=== PATIENT | male | born 1965 | race African-American/Black ===

== ENCOUNTER 2017-04-27 20:42 | Inpatient (IN) | payer OTHER ==
[~2017-04-27] VITALS: Ht 160 cm; Wt 63.5 kg
[2017-04-27] MEDS ORDERED: IV NORMAL SALINE 1000ML BAG 1,000 ML IV ONE (21:00)
[2017-04-27] MEDS ORDERED: ONDANSETRON PF 4 MG/2 ML VIAL. IV ONE ×2 (21:00→21:45)
[2017-04-27 21:29] LABS: BASO # 0.1 x10^3/uL (0.0-0.2); BASO % 1 % (0-3); EOS % 1 % (0-3); HEMATOCRIT 36.1 % (39.0-53.0); HEMOGLOBIN 12.4 g/dL (13.0-17.5); LYMPH # 2.2 x10^3/uL (1.0-4.8); LYMPH % 38 % (24-48); MEAN CORPUSCULAR HEMOGLOBIN 34 pg (25-35); MEAN CORPUSCULAR HGB CONC 34 g/dL (31-37); MEAN CORPUSCULAR VOLUME 98 fL (79-100); MONO % 11 % (0-9); NEUT % 49 % (31-73); PLATELET COUNT 149 x10^3/uL (140-400); RED CELL DISTRIBUTION WIDTH 16.2 % (11.5-14.5); WHITE BLOOD COUNT 5.7 x10^3/uL (4.0-11.0)
[2017-04-27 21:43] LABS: CREATININE 0.7 mg/dL (0.7-1.3); GFR 142.2; POTASSIUM 3.1 mmol/L (3.5-5.1)
[2017-04-27] MEDS ORDERED: HYDROmorphone 2 MG/ML VIAL IV ONE ×2 (21:45→23:00)
[2017-04-27 21:49] LABS: ALBUMIN 3.1 g/dL (3.4-5.0); ALBUMIN/GLOBULIN RATIO 0.9 (1.0-1.7); TOTAL BILIRUBIN 0.1 mg/dL (0.2-1.0); TOTAL PROTEIN 6.6 g/dL (6.4-8.2)
--- NOTE | 2017-04-27 22:24 | RAD ---
LIMITED ABDOMINAL ULTRASOUND History: Right upper quadrant and midline pain. Comparison: None. Procedure: Transabdominal ultrasound images are obtained. Findings: Pancreas demonstrates apparent mass measuring 4.6 cm in maximum dimension. Pancreatic duct is dilated at 9 mm. Liver is increased in echogenicity. No focal hepatic masses are identified. Right hepatic lobe measures 13.3 cm Gallbladder has an unremarkable appearance. Common bile duct measures normally at 4 mm in diameter. Right kidney measures 10.4 cm in length. There is no evidence of stone or hydronephrosis. Visualized IVC demonstrates normal caliber. Impression: 1. There appears be a pancreatic mass measuring about 4.6 cm in maximum dimension. Pancreatic duct appears dilated. 2. Common bile duct appears to have normal caliber at 4 mm. 3. Gallbladder appears within normal limits. Electronically signed by: Bladimir Saunders MD (04/27/2017 10:21 PM) [id number]
--- NOTE | 2017-04-27 22:58 | PHYS DOC ---
Past Medical History Past Medical History: Stroke Additional Past Medical Histor: PE Past Surgical History: No Surgical History Alcohol Use: Heavy Drug Use: None Adult General Chief Complaint Chief Complaint: ABDOMINAL PAIN HPI HPI Patient is a 52 year old gentleman with a history significant for strokes and PE in the past presents to the ER today secondary nausea vomiting for 3 days with abdominal pain. Patient reports yesterday he did have a black bowel movement but he thinks that was after taking Pepto-Bismol. Patient has any history of hypertension diabetes lung or liver problems. Patient has a kidney problems. No history of stomach ulcers. No prior abdominal surgeries. Patient reports he does smoke and drink. Patient denies any drugs. Patient has no known drug allergies. Patient has any fevers shakes chills cough cold rhinorrhea. Patient denies any dysuria frequency or urgency. Patient is complaining of midepigastric abdominal discomfort 1-2 days as well. Review of systems Constitutional: Denies fever or chills Eyes: Denies change in visual acuity, redness, or eye pain HENT: Denies nasal congestion or sore throat All other review systems are negative except as documented in the history of present illness portion. Physical exam Constitutional: Well developed, well nourished, no acute distress, non-toxic appearance. HENT: Normocephalic, atraumatic, bilateral external ears normal, oropharynx moist, no oral exudates, nose normal. Eyes: PERRLA, EOMI, conjunctiva normal, no discharge. Neck: Normal range of motion, no tenderness, supple, no stridor. Cardiovascular:Heart rate regular rhythm, Lungs & Thorax: Bilateral breath sounds clear to auscultation Abdomen: Bowel sounds normal, soft, tenderness to palpation midepigastric region. no masses, no pulsatile masses. Skin: Warm, dry, no erythema, no rash. Back: No tenderness, no CVA tenderness. Extremities: No tenderness, no cyanosis, no clubbing, ROM intact, no edema. Neurologic: Alert and oriented X 3, normal motor function, normal sensory function, no focal deficits noted. Psychologic: Affect normal, judgement normal, mood normal. This is a 52-year-old gentleman who presents here today complaining of midepigastric and right upper quadrant pain 1-2 days. Patient reports a gastric alcohol. Patient reports he drank about 3 shots of gin today. Patient denies any fevers shakes chills or any other symptomatology other than the abdominal discomfort. Patient had an ultrasound of his gallbladder which revealed dilated common ducts with a likely pancreatic mass. CT scan of the abdomen and pelvis was performed were still waiting results. Patient will need to be admitted to the hospital to assist with pain management. Patient required greater than 2 doses of Dilaudid while in the ED to assist him with his pain. Patient be given antiemetics and will be given hydration. Current Medications Current Medications Current Medications Medications (Trade) Dose Ordered Sig/Valentino Start Time Stop Time Status Last Admin Dose Admin Hydromorphone HCl (Dilaudid) 1 mg 1X ONCE 04/27/17 23:00 04/27/17 23:01 Info (Do NOT chart on this entry -- for MONITORING) 1 each PRN DAILY PRN 04/27/17 23:00 04/29/17 22:59 Iohexol (Omnipaque 300 Mg/ml) 75 ml 1X ONCE 04/27/17 23:00 04/27/17 23:01 Ondansetron HCl (Zofran) 4 mg 1X ONCE 04/27/17 21:45 04/27/17 21:46 DC 04/27/17 21:58 4 MG Sodium Chloride 1,000 ml @ 1,000 mls/hr 1X ONCE 04/27/17 21:00 04/27/17 21:59 DC 04/27/17 21:05 1,000 MLS/HR Allergies Allergies Allergies Coded Allergies Type Severity Reaction Last Updated Verified No Known Drug Allergies 08/17/13 No Current Patient Data Vital Signs Vital Signs Date Time Temp Pulse Resp B/P (MAP) Pulse Ox O2 Delivery O2 Flow Rate FiO2 04/27/17 20:47 98.2 98 20 157/103 (121) 97 Room Air 98.2 Lab Values Laboratory Tests Test 04/27/17 21:20 White Blood Count 5.7 x10^3/uL (4.0-11.0) Red Blood Count 3.70 x10^6/uL (4.30-5.70) L Hemoglobin 12.4 g/dL (13.0-17.5) L Hematocrit 36.1 % (39.0-53.0) L Mean Corpuscular Volume 98 fL (79-100) Mean Corpuscular Hemoglobin 34 pg (25-35) Mean Corpuscular Hemoglobin Concent 34 g/dL (31-37) Red Cell Distribution Width 16.2 % (11.5-14.5) H Platelet Count 149 x10^3/uL (140-400) Neutrophils (%) (Auto) 49 % (31-73) Lymphocytes (%) (Auto) 38 % (24-48) Monocytes (%) (Auto) 11 % (0-9) H Eosinophils (%) (Auto) 1 % (0-3) Basophils (%) (Auto) 1 % (0-3) Neutrophils # (Auto) 2.8 x10^3uL (1.8-7.7) Lymphocytes # (Auto) 2.2 x10^3/uL (1.0-4.8) Monocytes # (Auto) 0.6 x10^3/uL (0.0-1.1) Eosinophils # (Auto) 0.0 x10^3/uL (0.0-0.7) Basophils # (Auto) 0.1 x10^3/uL (0.0-0.2) Sodium Level 142 mmol/L (136-145) Potassium Level 3.1 mmol/L (3.5-5.1) L Chloride Level 103 mmol/L (98-107) Carbon Dioxide Level 27 mmol/L (21-32) Anion Gap 12 (6-14) Blood Urea Nitrogen 6 mg/dL (8-26) L Creatinine 0.7 mg/dL (0.7-1.3) Estimated GFR (Cockcroft-Gault) 142.2 BUN/Creatinine Ratio 9 (6-20) Glucose Level 132 mg/dL (70-99) H Calcium Level 8.0 mg/dL (8.5-10.1) L Total Bilirubin 0.1 mg/dL (0.2-1.0) L Aspartate Amino Transferase (AST) 9 U/L (15-37) L Alanine Aminotransferase (ALT) 17 U/L (16-63) Alkaline Phosphatase 73 U/L (46-116) Troponin I Quantitative < 0.017 ng/mL (0.000-0.055) Total Protein 6.6 g/dL (6.4-8.2) Albumin 3.1 g/dL (3.4-5.0) L Albumin/Globulin Ratio 0.9 (1.0-1.7) L Lipase 2896 U/L (73-393) H Ethyl Alcohol Level 22 mg/dL (0-10) H Laboratory Tests 04/27/17 21:20 Laboratory Tests 04/27/17 21:20 EKG EKG [] Radiology/Procedures Radiology/Procedures [] Course & Med Decision Making Course & Med Decision Making Pertinent Labs and Imaging studies reviewed. (See chart for details) [] Dragon Disclaimer Dragon Disclaimer This electronic medical record was generated, in whole or in part, using a voice recognition dictation system. Departure Departure Impression: Primary Impression: Pancreatic mass Additional Impression: Pancreatitis Disposition: ADMITTED INPATIENT Admitting Physician: Kory Najera Condition: GUARDED Referrals: NO PCP (PCP) Problem Qualifiers VINNY PETERSON MD Apr 27, 2017 22:58
[2017-04-27] MEDS ORDERED: ONDANSETRON PF 4 MG/2 ML VIAL. IV PRN (23:00)
[2017-04-27] MEDS ORDERED: CONTRAST GIVEN MC PRN (23:00)
[2017-04-27] MEDS: IV NORMAL SALINE 1000ML BAG 1,000 ML IV SCH (23:00)
[2017-04-27] MEDS ORDERED: IOHEXOL 300 MG/ML 75 ML VIAL IV ONE (23:00)
--- NOTE | 2017-04-27 23:52 | RAD ---
INDICATION: ELEVATED LIPASE, ABD PAIN COMPARISON: Ultrasound earlier same day TECHNIQUE: Axial CT images were obtained through the abdomen and pelvis with intravenous contrast. One or more of the following individualized dose reduction techniques were utilized for this examination: 1. Automated exposure control; 2. Adjustment of the mA and/or kV according to patient size; 3. Use of iterative reconstruction technique. FINDINGS: Mild cystic changes at the left lung base. Multifocal soft and hard plaque is seen throughout the vasculature, severe. No intrahepatic bile duct dilation. 4 mm low-attenuation lesion right lobe the liver, too small to characterize. Dilation of the pancreatic duct. At the pancreatic head there is a mixed attenuation masslike structure identified with some cystic foci within. There is some adjacent edema and fluid identified. This masslike structure measures at least 4 cm in diameter. Spleen unremarkable. Probable right renal cyst and left renal cyst. No hydronephrosis. Bladder partially distended. Colonic diverticulosis. No dilated loops of bowel to suggest obstruction. Degenerative changes of spine. IMPRESSION: 1. Masslike structure is seen at the pancreatic head with some calcifications and cystic or necrotic component within. Differential considerations include pancreatic neoplasm including adenocarcinoma with some other possible causes including sequela of pancreatitis with swelling and pseudocysts in the region. Given that pancreatic neoplasm is within the differential for this finding further workup options include endoscopic ultrasound to assess for feasibility of biopsy. Intraductal papillary mucinous neoplasm is also within the differential for the cystic component but given the more solid-appearing component further workup is warranted. Electronically signed by: Conner Naidu MD (04/27/2017 11:49 PM) [facility]
[2017-04-28] VITALS (7 sets, daily range): BP systolic 123–149; BP diastolic 67–93
[2017-04-28] MEDS: IV NORMAL SALINE 1000ML BAG 1,000 ML IV SCH (08:18)
[2017-04-28] MEDS: fentaNYL PF VIAL 100 MCG/2 ML VIAL IV PRN ×2 (08:22→14:01)
--- NOTE | 2017-04-28 08:54 | PDOC2 ---
GI CONSULT Reason For Consult: Pancreatitis, possible pancreatic mass HPI: HPI: 52 y/o male admitted through the ER. Reports 3-4 days of RUQ pain associated w / n/v and diarrhea. No h/o similar pain, no precipitating events. Exacerbated by drinking water. N/v and diarrhea have resolved. Labs significant for normal WBC, Hgb 12.4, K 3.1, bili 0.1, AST 9, ALT 17, Alk Phos 73, ethyl alcohol 22, lipase 2896. US showed 4.6cm pancreatic mass w/ dilated pancreatic duct; note made of normal gallbladder and CBD. CT A/P showed masslike structure in the pancreatic head w/ calcifications w/ cystic/ necrotic component within; also note dilated pancreatic duct. Denies reflux/heartburn, dysphagia, hematemesis, hematochezia, or melena. Appetite was okay prior to symptom onset. Has lost about 10 pounds in 1 month. No NSAID use. No previous EGD or colonoscopy. No gallbladder or liver history. Drinks 1 pint of gin weekly. PMH: PMH: CVA, PE FH: Family History: No pertinent hx Social History: Smoke: <1 pack per day ALCOHOL: heavy (1 pint of gin each week) Drugs: None ROS: GEN: Denies fevers, chills, sweats HEENT: Denies blurred vision, sore throat CV: Denies chest pain RESP: Denies shortness of air, cough GI: Per HPI : Denies hematuria, dysuria ENDO: +weight loss NEURO: Denies confusion, dizziness MSK: Denies weakness, joint pain/swelling SKIN: Denies jaundice, pruritus Vitals: Vitals: Vital Signs Date Time Temp Pulse Resp B/P (MAP) Pulse Ox O2 Delivery O2 Flow Rate FiO2 04/28/17 08:22 20 Room Air 04/28/17 07:00 98.0 62 149/92 (111) 97 98.0 Labs: Labs: Laboratory Tests Test 04/27/17 21:20 White Blood Count 5.7 x10^3/uL (4.0-11.0) Red Blood Count 3.70 x10^6/uL (4.30-5.70) Hemoglobin 12.4 g/dL (13.0-17.5) Hematocrit 36.1 % (39.0-53.0) Mean Corpuscular Volume 98 fL (79-100) Mean Corpuscular Hemoglobin 34 pg (25-35) Mean Corpuscular Hemoglobin Concent 34 g/dL (31-37) Red Cell Distribution Width 16.2 % (11.5-14.5) Platelet Count 149 x10^3/uL (140-400) Neutrophils (%) (Auto) 49 % (31-73) Lymphocytes (%) (Auto) 38 % (24-48) Monocytes (%) (Auto) 11 % (0-9) Eosinophils (%) (Auto) 1 % (0-3) Basophils (%) (Auto) 1 % (0-3) Neutrophils # (Auto) 2.8 x10^3uL (1.8-7.7) Lymphocytes # (Auto) 2.2 x10^3/uL (1.0-4.8) Monocytes # (Auto) 0.6 x10^3/uL (0.0-1.1) Eosinophils # (Auto) 0.0 x10^3/uL (0.0-0.7) Basophils # (Auto) 0.1 x10^3/uL (0.0-0.2) Sodium Level 142 mmol/L (136-145) Potassium Level 3.1 mmol/L (3.5-5.1) Chloride Level 103 mmol/L (98-107) Carbon Dioxide Level 27 mmol/L (21-32) Anion Gap 12 (6-14) Blood Urea Nitrogen 6 mg/dL (8-26) Creatinine 0.7 mg/dL (0.7-1.3) Estimated GFR (Cockcroft-Gault) 142.2 BUN/Creatinine Ratio 9 (6-20) Glucose Level 132 mg/dL (70-99) Calcium Level 8.0 mg/dL (8.5-10.1) Total Bilirubin 0.1 mg/dL (0.2-1.0) Aspartate Amino Transf (AST/SGOT) 9 U/L (15-37) Alanine Aminotransferase (ALT/SGPT) 17 U/L (16-63) Alkaline Phosphatase 73 U/L (46-116) Troponin I Quantitative < 0.017 ng/mL (0.000-0.055) Total Protein 6.6 g/dL (6.4-8.2) Albumin 3.1 g/dL (3.4-5.0) Albumin/Globulin Ratio 0.9 (1.0-1.7) Lipase 2896 U/L (73-393) Ethyl Alcohol Level 22 mg/dL (0-10) Allergies: Coded Allergies: No Known Drug Allergies (Unverified , 08/17/13) Medications: Current Medications Medications (Trade) Dose Ordered Sig/Valentino Route PRN Reason Start Time Stop Time Status Last Admin Dose Admin Ondansetron HCl (Zofran) 4 mg 1X ONCE IV 04/27/17 21:00 04/27/17 21:01 DC 04/27/17 21:06 Sodium Chloride 1,000 ml @ 1,000 mls/hr 1X ONCE IV 04/27/17 21:00 04/27/17 21:59 DC 04/27/17 21:05 Ondansetron HCl (Zofran) 4 mg 1X ONCE IV 04/27/17 21:45 04/27/17 21:46 DC 04/27/17 21:58 Hydromorphone HCl (Dilaudid) 0.5 mg 1X ONCE IV 04/27/17 21:45 04/27/17 21:46 DC 04/27/17 21:58 Hydromorphone HCl (Dilaudid) 1 mg 1X ONCE IV 04/27/17 23:00 04/27/17 23:01 DC 04/27/17 23:00 Iohexol (Omnipaque 300 Mg/ml) 75 ml 1X ONCE IV 04/27/17 23:00 04/27/17 23:01 DC 04/27/17 23:03 Fentanyl Citrate (Fentanyl 2ml Vial) 50 mcg PRN Q2HR PRN IV PAIN 04/27/17 23:00 04/28/17 22:59 04/28/17 08:22 Sodium Chloride 1,000 ml @ 125 mls/hr Q8H IV 04/27/17 23:00 04/28/17 22:59 04/28/17 08:18 Imaging: Imaging: CT A/P 04/27/17 w/ IV contrast 04/27/17 FINDINGS: Mild cystic changes at the left lung base. Multifocal soft and hard plaque is seen throughout the vasculature, severe. No intrahepatic bile duct dilation. 4 mm low-attenuation lesion right lobe the liver, too small to characterize. Dilation of the pancreatic duct. At the pancreatic head there is a mixed attenuation masslike structure identified with some cystic foci within. There is some adjacent edema and fluid identified. This masslike structure measures at least 4 cm in diameter. Spleen unremarkable. Probable right renal cyst and left renal cyst. No hydronephrosis. Bladder partially distended. Colonic diverticulosis. No dilated loops of bowel to suggest obstruction. Degenerative changes of spine. IMPRESSION: 1. Masslike structure is seen at the pancreatic head with some calcifications and cystic or necrotic component within. Differential considerations include pancreatic neoplasm including adenocarcinoma with some other possible causes including sequela of pancreatitis with swelling and pseudocysts in the region. Given that pancreatic neoplasm is within the differential for this finding further workup options include endoscopic ultrasound to assess for feasibility of biopsy. Intraductal papillary mucinous neoplasm is also within the differential for the cystic component but given the more solid-appearing component further workup is warranted. PE: GEN: NAD, thin HEENT: Atraumatic, PERRL LUNGS: CTAB anteriorly HEART: RRR ABD: BS+, RUQ tenderness, soft, non-distended EXTREMITY: No edema SKIN: No rashes, no jaundice NEURO/PSYCH: A & O 3 A/P: A/P: RUQ pain, n/v, diarrhea -acute onset 3-4 days ago, all improved except pain Abnormal pancreas imaging w/ elevated lipase, weight loss -masslike structure at the pancreatic head w/ calcifications and cystic/ necrotic component (ddw: neoplasm, sequela of pancreatitis w/ swelling and pseudocysts), dilated pancreatic duct -alcohol use CRC screen -no previous colonoscopy H/o CVA and PE, hypokalemia -per primary -- Continue NPO, supportive care for now. D/w Dr. Foss - will check MRCP and CA19-9 for now. May need to consider EUS at some point. Counseled re: alcohol avoidance. JASS GONSALVES Apr 28, 2017 08:54
--- NOTE | 2017-04-28 09:05 | PDOC1 ---
History and Physical Date of Admission Date of Admission DATE: 04/28/17 TIME: 09:05 Identification/Chief Complaint Chief Complaint abd pain, nausea Problems: Source Source: Chart review, Patient History of Present Illness History of Present Illness Mr. Bashir, is a 52 year old admit from ER lastnight for acute abd pain w.nausea and vomiting for 3 days. some symptom improvement with PO Pepto-Bismol. Prior CVA, residual balance problems only ongoing tobacco and EtOH use, cessation was already discussed by prior eval today. .pain now 7/10, better with pain meds, he feels comfortable Past Medical History Past Medical History history significant for strokes and PE in the past Cardiovascular: No pertinent hx Pulmonary: No pertinent hx CENTRAL NERVOUS SYSTEM: CVA GI: No pertinent hx Heme/Onc: No pertinent hx Social History Smoke: <1 pack per day ALCOHOL: heavy (1 pint of gin each week) Drugs: None Current Problem List Problem List Problems Medical Problems: (1) Pancreatic mass Status: Acute (2) Pancreatitis Status: Acute Problems: Current Medications Current Medications Current Medications Ondansetron HCl (Zofran) 4 mg 1X ONCE IV Last administered on 04/27/17 21:06 ; Start 04/27/17 at 21:00; Stop 04/27/17 at 21:01; Status DC Sodium Chloride 1,000 ml @ 1,000 mls/hr 1X ONCE IV Last administered on 21:05; Start 04/27/17 at 21:00; Stop 04/27/17 at 21:59; Status DC Ondansetron HCl (Zofran) 4 mg 1X ONCE IV Last administered on 04/27/17 21:58 ; Start 04/27/17 at 21:45; Stop 04/27/17 at 21:46; Status DC Hydromorphone HCl (Dilaudid) 0.5 mg 1X ONCE IV Last administered on 04/27/17 21:58; Start 04/27/17 at 21:45; Stop 04/27/17 at 21:46; Status DC Hydromorphone HCl (Dilaudid) 1 mg 1X ONCE IV Last administered on 04/27/17 23 :00; Start 04/27/17 at 23:00; Stop 04/27/17 at 23:01; Status DC Iohexol (Omnipaque 300 Mg/ml) 75 ml 1X ONCE IV Last administered on 04/27/17 23:03; Start 04/27/17 at 23:00; Stop 04/27/17 at 23:01; Status DC Info (Do NOT chart on this entry -- for MONITORING) 1 each PRN DAILY PRN MC SEE COMMENTS; Start 04/27/17 at 23:00; Stop 04/29/17 at 22:59 Ondansetron HCl (Zofran) 4 mg PRN Q8HRS PRN IV NAUSEA/VOMITING; Start 04/27/17 at 23:00; Stop 04/28/17 at 22:59 Fentanyl Citrate (Fentanyl 2ml Vial) 50 mcg PRN Q2HR PRN IV PAIN Last administered on 04/28/17 08:22; Start 04/27/17 at 23:00; Stop 04/28/17 at 22:59 Sodium Chloride 1,000 ml @ 125 mls/hr Q8H IV Last administered on 04/28/17 08 :18; Start 04/27/17 at 23:00; Stop 04/28/17 at 22:59 Active Scripts Active Allergies Allergies: Coded Allergies: No Known Drug Allergies (Unverified , 08/17/13) ROS General: No: Chills, Night Sweats, Fatigue, Malaise, Appetite, Other PSYCHOLOGICAL ROS: No: Anxiety, Behavioral Disorder, Concentration difficultie , Decreased libido, Depression, Disorientation, Hallucinations, Hostility, Irritablity, Memory difficulties, Mood Swings, Obsessive thoughts, Physical abuse, Sexual abuse, Sleep disturbances, Suicidal ideation, Other Eyes: No Blurry vision, No Decreased vision, No Double vision, No Dry eyes, No Excessive tearing, No Eye Pain, No Itchy Eyes, No Loss of vision, No Photophobia , No Scotomata, No Uses contacts, No Uses glasses, No Other HEENT: No: Heacaches, Visual Changes, Hearing change, Nasal congestion, Nasal discharge, Oral lesions, Sinus pain, Sore Throat, Epistaxis, Sneezing, Snoring, Tinnitus, Vertigo, Vocal changes, Other Respiratory: No: Cough, Hemoptysis, Orthopnea, Pleuritic Pain, Shortness of breath, SOB with excertion, Sputum Changes, Stridor, Tachypnea, Wheezing, Other Cardiovascular: No Chest Pain, No Palpitations, No Orthopnea, No Paroxysmal Noc. Dyspnea, No Edema, No Lt Headedness, No Other Gastrointestinal: No Nausea, No Vomiting, No Abdominal Pain, No Diarrhea, No Constipation, No Melena, No Hematochezia, No Other Genitourinary: No Dysuria, No Frequency, No Incontinence, No Hematuria, No Retention, No Discharge, No Urgency, No Pain, No Flank Pain, No Other, No , No , No , No , No , No , No Neurological: No Behavorial Changes, No Bowel/Bladder ControlChng, No Confusion , No Dizziness, No Gait Disturbance, No Headaches, No Impaired Coord/balance, No Memory Loss, No Numbness/Tingling, No Seizures, No Speech Problems, No Tremors, No Visual Changes, No Weakness, No Other Skin: No Dry Skin, No Eczema, No Hair Changes, No Lumps, No Mole Changes, No Mottling, No Nail Changes, No Pruritus, No Rash, No Skin Lesion Changes, No Other, No Acne Physical Exam General: Oriented X3, Cooperative, No acute distress HEENT: EOMI, Mucous membr. moist/pink, Other (poor dentition) Lungs: Normal air movement Heart: no gallops, no murmurs Abdomen: Normal bowel sounds, Soft Rectal Exam: not examined Extremities: No cyanosis, No edema Skin: No rashes Neuro: Normal tone, Sensation intact Vitals Vitals Vital Signs Date Time Temp Pulse Resp B/P (MAP) Pulse Ox O2 Delivery O2 Flow Rate FiO2 04/28/17 08:22 20 Room Air 04/28/17 07:00 98.0 62 149/92 (111) 97 98.0 Labs Labs Laboratory Tests Test 04/27/17 21:20 White Blood Count 5.7 x10^3/uL (4.0-11.0) Red Blood Count 3.70 x10^6/uL (4.30-5.70) Hemoglobin 12.4 g/dL (13.0-17.5) Hematocrit 36.1 % (39.0-53.0) Mean Corpuscular Volume 98 fL (79-100) Mean Corpuscular Hemoglobin 34 pg (25-35) Mean Corpuscular Hemoglobin Concent 34 g/dL (31-37) Red Cell Distribution Width 16.2 % (11.5-14.5) Platelet Count 149 x10^3/uL (140-400) Neutrophils (%) (Auto) 49 % (31-73) Lymphocytes (%) (Auto) 38 % (24-48) Monocytes (%) (Auto) 11 % (0-9) Eosinophils (%) (Auto) 1 % (0-3) Basophils (%) (Auto) 1 % (0-3) Neutrophils # (Auto) 2.8 x10^3uL (1.8-7.7) Lymphocytes # (Auto) 2.2 x10^3/uL (1.0-4.8) Monocytes # (Auto) 0.6 x10^3/uL (0.0-1.1) Eosinophils # (Auto) 0.0 x10^3/uL (0.0-0.7) Basophils # (Auto) 0.1 x10^3/uL (0.0-0.2) Sodium Level 142 mmol/L (136-145) Potassium Level 3.1 mmol/L (3.5-5.1) Chloride Level 103 mmol/L (98-107) Carbon Dioxide Level 27 mmol/L (21-32) Anion Gap 12 (6-14) Blood Urea Nitrogen 6 mg/dL (8-26) Creatinine 0.7 mg/dL (0.7-1.3) Estimated GFR (Cockcroft-Gault) 142.2 BUN/Creatinine Ratio 9 (6-20) Glucose Level 132 mg/dL (70-99) Calcium Level 8.0 mg/dL (8.5-10.1) Total Bilirubin 0.1 mg/dL (0.2-1.0) Aspartate Amino Transf (AST/SGOT) 9 U/L (15-37) Alanine Aminotransferase (ALT/SGPT) 17 U/L (16-63) Alkaline Phosphatase 73 U/L (46-116) Troponin I Quantitative < 0.017 ng/mL (0.000-0.055) Total Protein 6.6 g/dL (6.4-8.2) Albumin 3.1 g/dL (3.4-5.0) Albumin/Globulin Ratio 0.9 (1.0-1.7) Lipase 2896 U/L (73-393) Ethyl Alcohol Level 22 mg/dL (0-10) Laboratory Tests Test 9/24/17 21:20 White Blood Count 5.7 x10^3/uL (4.0-11.0) Red Blood Count 3.70 x10^6/uL (4.30-5.70) Hemoglobin 12.4 g/dL (13.0-17.5) Hematocrit 36.1 % (39.0-53.0) Mean Corpuscular Volume 98 fL (79-100) Mean Corpuscular Hemoglobin 34 pg (25-35) Mean Corpuscular Hemoglobin Concent 34 g/dL (31-37) Red Cell Distribution Width 16.2 % (11.5-14.5) Platelet Count 149 x10^3/uL (140-400) Neutrophils (%) (Auto) 49 % (31-73) Lymphocytes (%) (Auto) 38 % (24-48) Monocytes (%) (Auto) 11 % (0-9) Eosinophils (%) (Auto) 1 % (0-3) Basophils (%) (Auto) 1 % (0-3) Neutrophils # (Auto) 2.8 x10^3uL (1.8-7.7) Lymphocytes # (Auto) 2.2 x10^3/uL (1.0-4.8) Monocytes # (Auto) 0.6 x10^3/uL (0.0-1.1) Eosinophils # (Auto) 0.0 x10^3/uL (0.0-0.7) Basophils # (Auto) 0.1 x10^3/uL (0.0-0.2) Sodium Level 142 mmol/L (136-145) Potassium Level 3.1 mmol/L (3.5-5.1) Chloride Level 103 mmol/L (98-107) Carbon Dioxide Level 27 mmol/L (21-32) Anion Gap 12 (6-14) Blood Urea Nitrogen 6 mg/dL (8-26) Creatinine 0.7 mg/dL (0.7-1.3) Estimated GFR (Cockcroft-Gault) 142.2 BUN/Creatinine Ratio 9 (6-20) Glucose Level 132 mg/dL (70-99) Calcium Level 8.0 mg/dL (8.5-10.1) Total Bilirubin 0.1 mg/dL (0.2-1.0) Aspartate Amino Transf (AST/SGOT) 9 U/L (15-37) Alanine Aminotransferase (ALT/SGPT) 17 U/L (16-63) Alkaline Phosphatase 73 U/L (46-116) Troponin I Quantitative < 0.017 ng/mL (0.000-0.055) Total Protein 6.6 g/dL (6.4-8.2) Albumin 3.1 g/dL (3.4-5.0) Albumin/Globulin Ratio 0.9 (1.0-1.7) Lipase 2896 U/L (73-393) Ethyl Alcohol Level 22 mg/dL (0-10) VTE Prophylaxis Ordered VTE Prophylaxis Devices: Yes VTE Pharmacological Prophylaxi: No Assessment/Plan Assessment/Plan acute pancreatitis EtOH use mass of pancreatic head, will need f/u GI consulted prior CVA, residual balance difficulty, likely cerebellar stroke, on disability tobacco use d/o htn hypokalemia, replace IV and Mag MANASA MEJIA MD Apr 28, 2017 09:05
[2017-04-28] MEDS ORDERED: MAGNESIUM SULFATE 2GM 50 ML IV ONE (10:00)
[2017-04-28] MEDS ORDERED: THIAMINE 100 MG in IV NORMAL SALINE 50ML 50 ML IV ONE (10:00)
[2017-04-28] MEDS: POTASSIUM CL 20MEQ D5-0.45NACL 1,000 ML IV SCH ×2 (10:28→21:23)
[2017-04-28] MEDS: MULTIVITAMIN with MINERAL TABLET. PO SCH (10:29)
[2017-04-29 03:18] VITALS: BP 141/93
[2017-04-29] MEDS: POTASSIUM CL 20MEQ D5-0.45NACL 1,000 ML IV SCH ×3 (04:47→17:15)
[2017-04-29 07:00] VITALS: BP 108/73
[2017-04-29] MEDS: MULTIVITAMIN with MINERAL TABLET. PO SCH (09:47)
[2017-04-29 11:15] VITALS: BP 151/99
--- NOTE | 2017-04-29 13:17 | PDOC ---
Subjective: Subjective: Feels better, less pain, would like some pudding. Objective: Vital Signs: Vital Signs Date Time Temp Pulse Resp B/P (MAP) Pulse Ox O2 Delivery O2 Flow Rate FiO2 04/29/17 11:15 98.1 73 18 151/99 (116) 94 Room Air 98.1 Labs: Laboratory Tests Test 04/29/17 04:55 Lipase 2623 U/L Imaging: MRCP 04/29/17 PENDING PE: GEN: NAD LUNGS: CTAB HEART: RRR ABD: less RUQ discomfort NEURO/PSYCH: A & O 3 A/P: RUQ pain - better Abnormal pancreas imaging w/ elevated lipase, weight loss -masslike structure at the pancreatic head w/ calcifications and cystic/ necrotic component (ddw: neoplasm, sequela of pancreatitis w/ swelling and pseudocysts), dilated pancreatic duct -- Await MRCP, try full liquids. JASS GONSALVES Apr 29, 2017 13:17
--- NOTE | 2017-04-29 13:50 | RAD ---
Examination: MRCP without contrast History: History of dilated pancreatic duct on CT scan, right upper quadrant pain, nausea, vomiting Comparison: CT from 04/27/2017 Technique: Multiplanar, multisequence MRCP images of the abdomen was performed Findings: There is a dilated pancreatic duct measuring 1 cm in transverse dimension which which demonstrates abrupt cutoff in the region of the pancreatic neck. There is mild dilatation of the common bile duct with abrupt cutoff the distal portion of the common bile duct. The pancreatic head and neck region appear prominent with the some heterogeneous signal within the head of the pancreas and a cystic portion within the head of the pancreas measuring 1.5 cm. There is mild to moderate edema identified surrounding the pancreatic head and extending inferiorly. The visualized liver, spleen, adrenals grossly appears unremarkable Small subcentimeter cystic structures identified in the bilateral kidneys likely cysts. No evidence of filling defect identified within the lumen of the common bile duct. The gallbladder is mildly distended. No evidence of intrahepatic ductal dilatation. Impression: 1. Dilated appearing pancreatic duct and common bile duct with enlarged heterogeneous signal identified within the pancreatic head with a cystic component within. There is mild to moderate edema identified surrounding the pancreatic head. Differential includes pancreatitis with pancreatic neoplasm such as malignancy or pseudocysts or papillary mucinous neoplasm. Consider follow-up ERCP with endoscopic ultrasound and MR abdomen without and with IV contrast using pancreatic protocol after the acute episode of pancreatitis is resolved.
[2017-04-29 15:00] VITALS: BP 141/94
--- NOTE | 2017-04-29 16:11 | PDOC ---
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, residual balance difficulty tobacco use d/o htn hypokalemia, replace IV and Mag History of Present Illness History of Present Illness MRCP today GI consulted consider poss pancreatic cancer pt feels a little improved Vitals Vitals Vital Signs Date Time Temp Pulse Resp B/P (MAP) Pulse Ox O2 Delivery O2 Flow Rate FiO2 04/29/17 11:15 98.1 73 18 151/99 (116) 94 Room Air 98.1 Physical Exam General: Alert, Oriented X3, Cooperative, No acute distress Heart: Regular rate, No murmurs Abdomen: Normal bowel sounds, Soft Extremities: No cyanosis, No edema Skin: No rashes Labs LABS Laboratory Tests Test 04/29/17 04:55 Lipase 2623 U/L (73-393) Review of Systems Review of Systems no n.v.d poor po intake this AM Assessment and Plan Assessmemt and Plan Problems Medical Problems: (1) Pancreatic mass Status: Acute (2) Pancreatitis Status: Acute Problems: Comment Review of Relevant I have reviewed the following items mattie (where applicable) has been applied. Labs Laboratory Tests Test 04/27/17 21:20 04/29/17 04:55 White Blood Count 5.7 x10^3/uL (4.0-11.0) Red Blood Count 3.70 x10^6/uL (4.30-5.70) Hemoglobin 12.4 g/dL (13.0-17.5) Hematocrit 36.1 % (39.0-53.0) Mean Corpuscular Volume 98 fL (79-100) Mean Corpuscular Hemoglobin 34 pg (25-35) Mean Corpuscular Hemoglobin Concent 34 g/dL (31-37) Red Cell Distribution Width 16.2 % (11.5-14.5) Platelet Count 149 x10^3/uL (140-400) Neutrophils (%) (Auto) 49 % (31-73) Lymphocytes (%) (Auto) 38 % (24-48) Monocytes (%) (Auto) 11 % (0-9) Eosinophils (%) (Auto) 1 % (0-3) Basophils (%) (Auto) 1 % (0-3) Neutrophils # (Auto) 2.8 x10^3uL (1.8-7.7) Lymphocytes # (Auto) 2.2 x10^3/uL (1.0-4.8) Monocytes # (Auto) 0.6 x10^3/uL (0.0-1.1) Eosinophils # (Auto) 0.0 x10^3/uL (0.0-0.7) Basophils # (Auto) 0.1 x10^3/uL (0.0-0.2) Sodium Level 142 mmol/L (136-145) Potassium Level 3.1 mmol/L (3.5-5.1) Chloride Level 103 mmol/L (98-107) Carbon Dioxide Level 27 mmol/L (21-32) Anion Gap 12 (6-14) Blood Urea Nitrogen 6 mg/dL (8-26) Creatinine 0.7 mg/dL (0.7-1.3) Estimated GFR (Cockcroft-Gault) 142.2 BUN/Creatinine Ratio 9 (6-20) Glucose Level 132 mg/dL (70-99) Calcium Level 8.0 mg/dL (8.5-10.1) Total Bilirubin 0.1 mg/dL (0.2-1.0) Aspartate Amino Transf (AST/SGOT) 9 U/L (15-37) Alanine Aminotransferase (ALT/SGPT) 17 U/L (16-63) Alkaline Phosphatase 73 U/L (46-116) Troponin I Quantitative < 0.017 ng/mL (0.000-0.055) Total Protein 6.6 g/dL (6.4-8.2) Albumin 3.1 g/dL (3.4-5.0) Albumin/Globulin Ratio 0.9 (1.0-1.7) Lipase 2896 U/L (73-393) 2623 U/L (73-393) Ethyl Alcohol Level 22 mg/dL (0-10) Laboratory Tests Test 04/29/17 04:55 Lipase 2623 U/L (73-393) Medications Current Medications Ondansetron HCl (Zofran) 4 mg 1X ONCE IV Last administered on 04/27/17 21:06 ; Start 04/27/17 at 21:00; Stop 04/27/17 at 21:01; Status DC Sodium Chloride 1,000 ml @ 1,000 mls/hr 1X ONCE IV Last administered on 21:05; Start 04/27/17 at 21:00; Stop 04/27/17 at 21:59; Status DC Ondansetron HCl (Zofran) 4 mg 1X ONCE IV Last administered on 04/27/17 21:58 ; Start 04/27/17 at 21:45; Stop 04/27/17 at 21:46; Status DC Hydromorphone HCl (Dilaudid) 0.5 mg 1X ONCE IV Last administered on 04/27/17 21:58; Start 04/27/17 at 21:45; Stop 04/27/17 at 21:46; Status DC Hydromorphone HCl (Dilaudid) 1 mg 1X ONCE IV Last administered on 04/27/17 23 :00; Start 04/27/17 at 23:00; Stop 04/27/17 at 23:01; Status DC Iohexol (Omnipaque 300 Mg/ml) 75 ml 1X ONCE IV Last administered on 04/27/17 23:03; Start 04/27/17 at 23:00; Stop 04/27/17 at 23:01; Status DC Info (Do NOT chart on this entry -- for MONITORING) 1 each PRN DAILY PRN MC SEE COMMENTS; Start 04/27/17 at 23:00; Stop 04/29/17 at 22:59 Ondansetron HCl (Zofran) 4 mg PRN Q8HRS PRN IV NAUSEA/VOMITING; Start 04/27/17 at 23:00; Stop 04/28/17 at 22:59; Status DC Fentanyl Citrate (Fentanyl 2ml Vial) 50 mcg PRN Q2HR PRN IV PAIN Last administered on 04/28/17 14:01; Start 04/27/17 at 23:00; Stop 04/28/17 at 22:59 ; Status DC Sodium Chloride 1,000 ml @ 125 mls/hr Q8H IV Last administered on 04/28/17 08 :18; Start 04/27/17 at 23:00; Stop 04/28/17 at 09:08; Status DC Potassium Chloride/Dextrose/ Sod Cl 1,000 ml @ 125 mls/hr Q8H IV Last administered on 04/29/17 13:48; Start 04/28/17 at 09:15 Magnesium Sulfate/ Dextrose 50 ml @ 25 mls/hr 1X ONCE IV Last administered on 04/28/17 11:32; Start 04/28/17 at 10:00; Stop 04/28/17 at 11:59; Status DC Multivitamins (Thera M Plus) 1 tab DAILY PO Last administered on 04/29/17 09: 47; Start 04/28/17 at 10:00 Thiamine HCl 100 mg/Sodium Chloride 51 ml @ 100 mls/hr 1X ONCE IV Last administered on 04/28/17 10:29; Start 04/28/17 at 10:00; Stop 04/28/17 at 10:30 ; Status DC Lorazepam (Ativan) 2 mg PRN Q1HR PRN IV For CIWA 8-14 Last administered on 04/29 13:54; Start 04/28/17 at 09:45 Lorazepam (Ativan) 4 mg PRN Q1HR PRN IV For CIWA 15 or greater; Start 04/28/17 at 09:45 Active Scripts Active Vitals/I & O Vital Sign - Last 24 Hours 04/28/17 04/28/17 04/28/17 04/29/17 19:00 19:32 23:00 03:18 Temp 98.4 98.5 98.5 98.4 98.5 98.5 Pulse 75 83 87 Resp 20 20 20 B/P (MAP) 138/92 (107) 144/92 (109) 141/93 (109) Pulse Ox 99 100 99 O2 Delivery Room Air Room Air Room Air Room Air 04/29/17 04/29/17 07:00 11:15 Temp 97.5 98.1 97.5 98.1 Pulse 86 73 Resp 20 18 B/P (MAP) 108/73 (85) 151/99 (116) Pulse Ox 96 94 O2 Delivery Room Air Room Air MANASA MEJIA MD Apr 29, 2017 16:11
[2017-04-29 19:00] VITALS: BP 169/98
[2017-04-29 23:00] VITALS: BP 138/92
[2017-04-30] MEDS: POTASSIUM CL 20MEQ D5-0.45NACL 1,000 ML IV SCH ×2 (01:28→09:15)
[2017-04-30 03:00] VITALS: BP 136/95
[2017-04-30 07:00] VITALS: BP 148/95
[2017-04-30] MEDS: MULTIVITAMIN with MINERAL TABLET. PO SCH (09:00)
[2017-04-30 10:51] VITALS: BP 126/89
--- NOTE | 2017-04-30 12:46 | PDOC ---
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, residual balance difficulty tobacco use d/o htn hypokalemia, replace IV and Mag History of Present Illness History of Present Illness MRCP yesterday GI following consider poss pancreatic cancer pt feels a little improved Vitals Vitals Vital Signs Date Time Temp Pulse Resp B/P (MAP) Pulse Ox O2 Delivery O2 Flow Rate FiO2 04/30/17 10:51 97.5 88 18 126/89 (101) 100 Room Air 97.5 Physical Exam General: Alert, Oriented X3, Cooperative, No acute distress Heart: Regular rate, No murmurs Lungs: Clear Abdomen: Normal bowel sounds, Soft Extremities: No cyanosis, No edema Skin: No rashes Assessment and Plan Assessmemt and Plan Problems Medical Problems: (1) Pancreatic mass Status: Acute (2) Pancreatitis Status: Acute Problems: Comment Review of Relevant I have reviewed the following items mattie (where applicable) has been applied. Labs Laboratory Tests Test 04/29/17 04:55 Lipase 2623 U/L (73-393) Medications Current Medications Ondansetron HCl (Zofran) 4 mg 1X ONCE IV Last administered on 04/27/17 21:06 ; Start 04/27/17 at 21:00; Stop 04/27/17 at 21:01; Status DC Sodium Chloride 1,000 ml @ 1,000 mls/hr 1X ONCE IV Last administered on 21:05; Start 04/27/17 at 21:00; Stop 04/27/17 at 21:59; Status DC Ondansetron HCl (Zofran) 4 mg 1X ONCE IV Last administered on 04/27/17 21:58 ; Start 04/27/17 at 21:45; Stop 04/27/17 at 21:46; Status DC Hydromorphone HCl (Dilaudid) 0.5 mg 1X ONCE IV Last administered on 04/27/17 21:58; Start 04/27/17 at 21:45; Stop 04/27/17 at 21:46; Status DC Hydromorphone HCl (Dilaudid) 1 mg 1X ONCE IV Last administered on 04/27/17 23 :00; Start 04/27/17 at 23:00; Stop 04/27/17 at 23:01; Status DC Iohexol (Omnipaque 300 Mg/ml) 75 ml 1X ONCE IV Last administered on 04/27/17 23:03; Start 04/27/17 at 23:00; Stop 04/27/17 at 23:01; Status DC Info (Do NOT chart on this entry -- for MONITORING) 1 each PRN DAILY PRN MC SEE COMMENTS; Start 04/27/17 at 23:00; Stop 04/29/17 at 22:59; Status DC Ondansetron HCl (Zofran) 4 mg PRN Q8HRS PRN IV NAUSEA/VOMITING; Start 04/27/17 at 23:00; Stop 04/28/17 at 22:59; Status DC Fentanyl Citrate (Fentanyl 2ml Vial) 50 mcg PRN Q2HR PRN IV PAIN Last administered on 04/28/17 14:01; Start 04/27/17 at 23:00; Stop 04/28/17 at 22:59 ; Status DC Sodium Chloride 1,000 ml @ 125 mls/hr Q8H IV Last administered on 04/28/17 08 :18; Start 04/27/17 at 23:00; Stop 04/28/17 at 09:08; Status DC Potassium Chloride/Dextrose/ Sod Cl 1,000 ml @ 125 mls/hr Q8H IV Last administered on 04/30/17 09:15; Start 04/28/17 at 09:15 Magnesium Sulfate/ Dextrose 50 ml @ 25 mls/hr 1X ONCE IV Last administered on 04/28/17 11:32; Start 04/28/17 at 10:00; Stop 04/28/17 at 11:59; Status DC Multivitamins (Thera M Plus) 1 tab DAILY PO Last administered on 04/29/17 09: 47; Start 04/28/17 at 10:00 Thiamine HCl 100 mg/Sodium Chloride 51 ml @ 100 mls/hr 1X ONCE IV Last administered on 04/28/17 10:29; Start 04/28/17 at 10:00; Stop 04/28/17 at 10:30 ; Status DC Lorazepam (Ativan) 2 mg PRN Q1HR PRN IV For CIWA 8-14 Last administered on 04/30 01:27; Start 04/28/17 at 09:45 Lorazepam (Ativan) 4 mg PRN Q1HR PRN IV For CIWA 15 or greater; Start 04/28/17 at 09:45 Active Scripts Active Vitals/I & O Vital Sign - Last 24 Hours 04/29/17 04/29/17 04/29/17 04/30/17 15:00 19:00 23:00 03:00 Temp 97.9 96.4 97.9 98.1 97.9 96.4 97.9 98.1 Pulse 78 75 87 83 Resp 18 20 14 16 B/P (MAP) 141/94 (110) 169/98 (121) 138/92 (107) 136/95 (109) Pulse Ox 97 99 99 99 O2 Delivery Room Air Room Air Room Air Room Air 04/30/17 04/30/17 07:00 10:51 Temp 98.0 97.5 98.0 97.5 Pulse 75 88 Resp 20 18 B/P (MAP) 148/95 (112) 126/89 (101) Pulse Ox 99 100 O2 Delivery Room Air Room Air MANASA MEJIA MD Apr 30, 2017 12:46
[2017-04-30] MEDS ORDERED: DOCU100C28 PO (12:47)
[2017-04-30] MEDS ORDERED: OXYC-323 PO (12:47)
--- NOTE | 2017-04-30 13:32 | PDOC ---
Subjective: Subjective: Pain a little better, says he'll eat "in 5 minutes." Objective: Vital Signs: Vital Signs Date Time Temp Pulse Resp B/P (MAP) Pulse Ox O2 Delivery O2 Flow Rate FiO2 04/30/17 10:51 97.5 88 18 126/89 (101) 100 Room Air 97.5 Imaging: MRCP 04/29/17 Impression: 1. Dilated appearing pancreatic duct and common bile duct with enlarged heterogeneous signal identified within the pancreatic head with a cystic component within. There is mild to moderate edema identified surrounding the pancreatic head. Differential includes pancreatitis with pancreatic neoplasm such as malignancy or pseudocysts or papillary mucinous neoplasm. Consider follow-up ERCP with endoscopic ultrasound and MR abdomen without and with IV contrast using pancreatic protocol after the acute episode of pancreatitis is resolved. PE: GEN: NAD LUNGS: clear HEART: RRR ABD: non-tender, soft NEURO/PSYCH: A & O 3 A/P: RUQ pain (better), weight loss Abnormal pancreas imaging w/ normal CA19-9 -- Needs outpt EUS (not available here). Our office can arrange. JASS BERNAL Apr 30, 2017 13:32
== END 2017-04-30 15:23 | disposition home health service (06) | DRG 439 ==
LOC: ER 20:42 → 5 NORTH 22:51
PROVIDERS: ADMIT Internal Medicine; ATTEND Internal Medicine
DX: K85.90 Acute pancreatitis without necrosis or infection, unspecified (principal); E44.0 Moderate protein-calorie malnutrition; I10 Essential (primary) hypertension; E11.9 Type 2 diabetes mellitus without complications; E87.6 Hypokalemia; F17.210 Nicotine dependence, cigarettes, uncomplicated; Z68.24 Body mass index [BMI] 24.0-24.9, adult; Z86.711 Personal history of pulmonary embolism; Z72.89 Other problems related to lifestyle; K86.89 Other specified diseases of pancreas; I69.398 Other sequelae of cerebral infarction
CPT/HCPCS: 36415; 74177; 74181; 76705; 80053; 83690; 84484; 85025; 86301; 96361; 96374; 96375; 96376; G0480; J1170; J2060; J2405; J3010; J7030; J7060; Q9967; 97116; 99285-25

== ENCOUNTER 2017-11-05 01:37 | Emergency (ER) | payer OTHER ==
[2017-11-05 03:08] LABS: ADD MAN DIFF? NO
[2017-11-05 03:10] LABS: BASO % 1 % (0-3); EOS % 0 % (0-3); HEMATOCRIT 45.9 % (39.0-53.0); HEMOGLOBIN 15.7 g/dL (13.0-17.5); LYMPH # 2.8 x10^3/uL (1.0-4.8); LYMPH % 36 % (24-48); MEAN CORPUSCULAR HEMOGLOBIN 32 pg (25-35); MEAN CORPUSCULAR HGB CONC 34 g/dL (31-37); MEAN CORPUSCULAR VOLUME 93 fL (79-100); MONO # 0.6 x10^3/uL (0.0-1.1); MONO % 8 % (0-9); NEUT # 4.2 x10^3uL (1.8-7.7); NEUT % 55 % (31-73); PLATELET COUNT 129 x10^3/uL (140-400); RED BLOOD COUNT 4.92 x10^6/uL (4.30-5.70); RED CELL DISTRIBUTION WIDTH 14.6 % (11.5-14.5); WHITE BLOOD COUNT 7.7 x10^3/uL (4.0-11.0)
[2017-11-05] MEDS: MULTIVIT INFUSN,ADULT 4,VIT K 10 ML, THIAMINE 100 MG, FOLIC ACID 1 MG in IV NORMAL SALI... IV (03:13)
[2017-11-05 03:22] LABS: ANION GAP 15 (6-14); BLOOD UREA NITROGEN 9 mg/dL (8-26); BUN/CREATININE RATIO 13 (6-20); CALCIUM 8.8 mg/dL (8.5-10.1); CARBON DIOXIDE 25 mmol/L (21-32); CHLORIDE 102 mmol/L (98-107); CREATININE 0.7 mg/dL (0.7-1.3); GFR 142.2; GLUCOSE 87 mg/dL (70-99); POTASSIUM 3.2 mmol/L (3.5-5.1); SODIUM 142 mmol/L (136-145)
[2017-11-05 03:28] LABS: ALBUMIN 3.7 g/dL (3.4-5.0); ALBUMIN/GLOBULIN RATIO 0.8 (1.0-1.7); ALK PHOS 96 U/L (46-116); ALT (SGPT) 12 U/L (16-63); AST (SGOT) 25 U/L (15-37); MAGNESIUM 1.8 mg/dL (1.8-2.4); TOTAL BILIRUBIN 0.3 mg/dL (0.2-1.0); TOTAL PROTEIN 8.3 g/dL (6.4-8.2)
[2017-11-05 03:39] LABS: LIPASE 235 U/L (73-393)
[2017-11-05] MEDS ORDERED: SUCRALFATE 1 GM/10 ML ORAL.SUSP. PEG (04:00)
== END 2017-11-05 05:04 | disposition home or self-care (01) ==
LOC: ER 01:37
DX: S00.01XA Abrasion of scalp, initial encounter (principal); M19.012 Primary osteoarthritis, left shoulder; Z86.73 Personal history of transient ischemic attack (TIA), and cerebral infarction without residual deficits; E86.0 Dehydration; J32.3 Chronic sphenoidal sinusitis; F10.10 Alcohol abuse, uncomplicated; W18.39XA Other fall on same level, initial encounter; Y93.89 Activity, other specified; Y99.8 Other external cause status; Y92.89 Other specified places as the place of occurrence of the external cause
CPT/HCPCS: 36415; 70450; 71110; 72125; 80053; 83690; 83735; 85025; 96365; 99285-25; J7030